=== PATIENT | female | born 1995 | race Two or more races ===

== ENCOUNTER 2023-12-04 00:47 | Emergency (ER) | payer OTHER ==
[~2023-12-04] VITALS: Ht 160 cm; Wt 63.5 kg
[2023-12-04] MEDS ORDERED: RINGERS SOLUTION,LACTATED 1,000 ML IV STA (01:40)
[2023-12-04 02:26] LABS: HEMATOCRIT 33.5 % (36.0-45.00); HEMOGLOBIN 11.2 g/dL (12.0-15.00); MEAN CELL VOLUME 79.8 fL (80.00-100.00); MEAN CORPUSCULAR HEMOGLOBIN 26.7 pg (27.00-32.0); MEAN CORPUSCULAR HGB CONC 33.5 g/dl (32.0-36.0); PLATELET COUNT 292 K/uL (150-450)
[2023-12-04 02:52] LABS: CALCIUM 9.2 mg/dL (8.5-10.1); CREATININE SERUM 0.67 mg/dL (0.55-1.02); GFR 104.8; POTASSIUM 3.88 mEq/L (3.5-5.1)
== END 2023-12-04 05:11 | disposition home or self-care (01) ==
LOC: ER 00:48
DX: O20.9 Hemorrhage in early pregnancy, unspecified (principal); O34.11 Maternal care for benign tumor of corpus uteri, first trimester; R10.2 Pelvic and perineal pain; Z3A.01 Less than 8 weeks gestation of pregnancy; Z88.8 Allergy status to other drugs, medicaments and biological substances